=== PATIENT | female | born 1990 | race American Indian/Alaskan Native ===

== ENCOUNTER 2017-05-20 14:11 | Emergency (ER) | payer MEDICAID ==
[2017-05-20 14:31] VITALS: BP 121/49
[2017-05-20] MEDS ORDERED: methylPREDNISolone Sodium Succinate 125 MG/2 ML SDV IM ONE (14:43)
[2017-05-20] MEDS ORDERED: diphenhydrAMINE 50 MG Cap PO ONE (14:44)
--- NOTE | 2017-05-20 14:51 | EDM.PDOC ---
ED HPI GENERAL MEDICAL PROBLEM - General Chief Complaint: Skin Complaint Stated Complaint: SEVERE RASH ON BOTH LEGS Time Seen by Provider: 05/20/17 14:35 Source of Information: Reports: Patient History Limitations: Reports: No Limitations - History of Present Illness INITIAL COMMENTS - FREE TEXT/NARRATIVE: This 26 yo female patient reports to the ED with a rash on her legs. The patient reports her neighbor just mowed his lawn 3 days ago. After being over in the neighbors yard, the patient started to notice some redness of her legs. The patient reports she has tried calamine lotion, but her legs have continued to get worse. Over the past 3 days, the patient has been attempting to clean up her legs. The patient reports she attempted to get into the [facility], but was offered an appointment in 2 days. Onset: Gradual Onset Date: 05/17/17 Duration: Constant, Getting Worse Location: Reports: Lower Extremity, Left, Lower Extremity, Right Quality: Reports: Ache, Dull Severity: Moderate Improves with: Reports: None Worsens with: Reports: None Associated Symptoms: Reports: No Other Symptoms Bilateral Leg Pain Score (Numeric/FACES): 4 - Related Data Allergies Allergy/AdvReac Type Severity Reaction Status Date / Time No Known Allergies Allergy Verified 05/20/17 14:18 Home Meds: Home Meds . 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 ED EXAM, SKIN/RASH Exam: See Below Exam Limited By: No Limitations General Appearance: Alert, WD/WN, Moderate Distress Eye Exam: Bilateral Eye: EOMI, Normal Inspection, PERRL Ears: Normal External Exam, Normal Canal, Hearing Grossly Normal, Normal TMs Nose: Normal Inspection, Normal Mucosa, No Blood Throat/Mouth: Normal Inspection, Normal Lips, Normal Teeth, Normal Gums, Normal Oropharynx, Normal Voice, No Airway Compromise Head: Atraumatic, Normocephalic Neck: Normal Inspection, Supple, Non-Tender, Full Range of Motion Respiratory/Chest: No Respiratory Distress, Lungs Clear, Normal Breath Sounds, No Accessory Muscle Use, Chest Non-Tender Cardiovascular: Normal Peripheral Pulses, Regular Rate, Rhythm, No Edema, No Gallop, No JVD, No Murmur, No Rub GI/Abdominal: Normal Bowel Sounds, Soft, Non-Tender, No Organomegaly, No Distention, No Abnormal Bruit, No Mass (Female) Exam: Deferred Rectal (Female) Exam: Deferred Back Exam: Normal Inspection, Full Range of Motion, NT Extremities: Normal Range of Motion, Non-Tender, No Pedal Edema, Normal Capillary Refill Neurological: Alert, Oriented, CN II-XII Intact, Normal Cognition, Normal Gait, Normal Reflexes, No Motor/Sensory Deficits Psychiatric: Normal Affect, Normal Mood Skin: Warm, Increased Warmth, Rash Location, Skin: Lower Extremity, Right, Lower Extremity, Left Characteristics: Other Associated features: Warmth Lymphatic: No Adenopathy Course - Vital Signs Last Recorded V/S: Last Vital Signs Temp 36.6 C 05/20/17 14:28 Pulse 96 05/20/17 14:28 Resp 18 05/20/17 14:28 BP 121/49 L 05/20/17 14:28 Pulse Ox 100 05/20/17 14:28 - Orders/Labs/Meds Meds: Medications Discontinued Medications Generic Name Dose Route Start Last Admin Trade Name Jarek PRN Reason Stop Dose Admin Diphenhydramine HCl 50 mg 05/20/17 14:44 05/20/17 14:48 Benadryl PO 05/20/17 14:45 50 mg ONETIME ONE Administration Methylprednisolone Sodium Succinate 125 mg 05/20/17 14:43 05/20/17 14:48 Solu-Medrol IM 05/20/17 14:44 125 mg ONETIME ONE Administration Departure - Departure Time of Disposition: 14:49 Disposition: Home, Self-Care 01 Condition: Fair Clinical Impression: Poison karen dermatitis - Discharge Information Instructions: Poison Karen Dermatitis, [id number] Forms: ED Department Discharge Care Plan Goals: The patient was advised of the examination results during the visit. The patient was given an oral dose of Benadryl and an injection of SoluMedrol while in the ED. The patient was discharged with a script for Prednisone (20 mg) #10 to take 2 by mouth daily for 5 days. The patient was encouraged to also take an oral dose of Benadryl (25 mg) every 6 hours. The patient should wash her bedding and clothing with hot water prior to exposing her skin to the materials. If the patient has any additional symptoms or concerns, the patient should visit her primary care facility or return to the emergency department.
== END 2017-05-20 14:56 | disposition home or self-care (01) ==
LOC: DL.ED 14:11
DX: L23.7 Allergic contact dermatitis due to plants, except food (principal)
CPT/HCPCS: 96372; 99282; J2930; Q0163

== ENCOUNTER 2018-11-03 02:51 | Emergency (ER) | payer MEDICAID, OTHER ==
[2018-11-03] MEDS ORDERED: Sodium Chloride 0.9% 10 ML Syringe FLUSH PRN (03:05)
[2018-11-03] MEDS ORDERED: MVI, Adult with Vitamin K 10 ML, Folic Acid 1 MG, Thiamine 100 MG in Lactated Ringers 1... IV ONE ×4 (03:05)
[2018-11-03 03:40] LABS: ANION GAP 15.8; CHLORIDE,CL 107 mmol/L (101-111); SODIUM,NA 139 mmol/L (135-145)
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
[2018-11-03] MEDS ORDERED: LORazepam 2 MG/ML Syringe IVPUSH ONE (03:56)
[2018-11-03] MEDS ORDERED: Lactated Ringers 1,000 ML IV ONE (03:56)
[2018-11-03] MEDS ORDERED: metroNIDAZOLE 250 MG Tab PO ONE (07:08)
[2018-11-03 12:23] VITALS: BP 108/53
== END 2018-11-03 12:40 | disposition home or self-care (01) ==
LOC: DL.ED 02:51
DX: S82.842A Displaced bimalleolar fracture of left lower leg, initial encounter for closed fracture (principal); F10.929 Alcohol use, unspecified with intoxication, unspecified; S00.12XA Contusion of left eyelid and periocular area, initial encounter; S00.83XA Contusion of other part of head, initial encounter; S60.221A Contusion of right hand, initial encounter; D64.9 Anemia, unspecified; F17.210 Nicotine dependence, cigarettes, uncomplicated; Y04.8XXA Assault by other bodily force, initial encounter; Y07.01 Husband, perpetrator of maltreatment and neglect
CPT/HCPCS: 29515; 36415; 36430; 70450; 70486; 72125; 73610; 80053; 80305; 81001; 81025; 85025; 86850; 86900; 86901; 86920; 86922; 87086; 96361; 96374; 99285; A9270; G0480; J2060; J7120; P9016; 99284

== ENCOUNTER 2022-04-22 22:53 | Emergency (ER) | payer MEDICAID, OTHER ==
[2022-04-22 23:04] VITALS: BP 118/66; PULSE 88
== END 2022-04-23 00:22 | disposition home or self-care (01) ==
LOC: DL.ED 22:53
DX: S63.502A Unspecified sprain of left wrist, initial encounter (principal); X50.0XXA Overexertion from strenuous movement or load, initial encounter
CPT/HCPCS: 73110-LT; 99282; 99283

== ENCOUNTER 2022-11-25 18:43 | Emergency (ER) | payer MEDICAID ==
[2022-11-25] MEDS ORDERED: Sodium Chloride 0.9% 10 ML Syringe FLUSH PRN (18:55)
[2022-11-25] MEDS ORDERED: Sodium Chloride 0.9% 1,000 ML IV ONE (18:55)
[2022-11-25] MEDS ORDERED: Pantoprazole 40 MG Vial IVPUSH ONE (19:30)
[2022-11-25 19:31] LABS: PTT,PARTIAL THROMBOPLSTIN TIME 21.2 SEC (22.0-34.0)
[2022-11-25] MEDS ORDERED: Pantoprazole 40 MG in Sodium Chloride 0.9% 100 ML IV SCH (19:31)
[2022-11-25 19:43] LABS: ANION GAP 17.4 mEq/L (7-13); CHLORIDE,CL 103 mmol/L (98-107); SODIUM,NA 140 mmol/L (136-145)
[2022-11-25 19:49] LABS: ESTIMATED GFR 101 mL/min (>=60)
[2022-11-25 19:58] LABS: AMPHETAMINES,URINE NEGATIVE (NEGATIVE); BARBITURATES,URINE NEGATIVE (NEGATIVE); BENZODIAZEPINE,URINE NEGATIVE (NEGATIVE); MDMA (ECSTASY), URINE NEGATIVE (NEGATIVE); METHADONE,URINE NEGATIVE (NEGATIVE); METHAMPHETAMINES,URINE NEGATIVE (NEGATIVE); OPIATES,URINE NEGATIVE (NEGATIVE); OXYCODONE,URINE NEGATIVE (NEGATIVE); PHENCYCLIDINE,URINE NEGATIVE (NEGATIVE); TCA,URINE NEGATIVE (NEGATIVE)
[2022-11-26 03:54] VITALS: BP 106/58; PULSE 78
== END 2022-11-26 05:00 | disposition home or self-care (01) ==
LOC: DL.ED 18:43
DX: D64.9 Anemia, unspecified (principal)
CPT/HCPCS: 36415; 36430; 71045; 80053; 80305-QW; 80307; 81001; 81025; 82150; 82272; 83540; 83550; 83605; 83690; 83735; 84484; 85025; 85610; 85730; 86850; 86900; 86901; 86920; 86922; 93005; 93010; 96361; 96365; 96366; 96376; 99284; 99284-25; C9113; J3490; J7030; P9016

== ENCOUNTER 2023-07-30 09:00 | Emergency (ER) | payer MEDICAID ==
[2023-07-30] MEDS ORDERED: Sodium Chloride 0.9% 1,000 ML IV ONE (09:05)
[2023-07-30] MEDS ORDERED: LORazepam 2 MG/ML SDV IVPUSH ONE (09:05)
[2023-07-30] MEDS ORDERED: Famotidine 20 MG/2 ML SDV IVPUSH ONE (09:05)
[2023-07-30] MEDS ORDERED: Thiamine 100 MG in Sodium Chloride 0.9% 100 ML IV ONE (09:06)
[2023-07-30] MEDS ORDERED: Sodium Chloride 0.9% 10 ML Syringe FLUSH PRN (09:07)
[2023-07-30 09:12] VITALS: BP 127/91; PULSE 94
[2023-07-30 09:33] LABS: BASOPHILS PERCENT AUTO 0.8 % (0.0-1.0); EOSINOPHILS PERCENT AUTO 0.7 % (1.0-3.0); HEMATOCRIT 31.9 % (37.0-47.0); HEMOGLOBIN 9.8 g/dL (12.0-16.0); LYMPHOCYTES PERCENT AUTO 18.9 % (20.5-50.1); MEAN CORPUSCULAR HEMOGLOBIN 25.3 pg (27.0-34.0); MEAN CORPUSCULAR HGB CONC 30.7 g/dL (33.0-35.0); MEAN CORPUSCULAR VOLUME 82.4 fL (80-100); NEUTROPHILS PERCENT AUTO 73.6 % (42.2-75.2); PLATELET COUNT,PLT 476 10^3/uL (150-450); RED BLOOD CELL COUNT 3.87 10^6/uL (4.2-5.4); WHITE BLOOD CELL COUNT,WBC 7.2 10^3/uL (5.0-10.0)
[2023-07-30 09:45] LABS: A/G RATIO 0.8; ALBUMIN 3.7 g/dL (3.4-5.0); ANION GAP 13.8 mEq/L (7-13); BILIRUBIN TOTAL 0.4 mg/dL (0.2-1.0); BUN/CREATININE RATIO 3.7 (No establ ref range); CALCIUM 8.4 mg/dL (8.5-10.1); CREATININE 0.81 mg/dL (0.55-1.02); EST CRCL DRUG DOSING (CG) 95.17 mL/min; MAGNESIUM 1.6 mg/dL (1.8-2.4); POTASSIUM,K 3.8 mmol/L (3.5-5.1); PROTEIN TOTAL,TP 8.3 g/dL (6.4-8.2)
[2023-07-30 09:53] LABS: APPEARANCE,URINE CLEAR (CLEAR); BILIRUBIN,URINE NEGATIVE (NEGATIVE); COLOR,URINE DARK YELLOW (YELLOW); GLUCOSE,URINE NEGATIVE (NEGATIVE); KETONES,URINE NEGATIVE (NEGATIVE); LEUKOCYTE ESTERASE,URINE TRACE (NEGATIVE); NITRITE,URINE NEGATIVE (NEGATIVE); OCCULT BLOOD,URINE TRACE-INTACT (NEGATIVE); PH,URINE 7.5 (5.0-9.0); PROTEIN,URINE 100 (NEGATIVE)
[2023-07-30 09:54] LABS: AMPHETAMINES,URINE NEGATIVE (NEGATIVE); BARBITURATES,URINE NEGATIVE (NEGATIVE); BENZODIAZEPINE,URINE NEGATIVE (NEGATIVE); MDMA (ECSTASY), URINE NEGATIVE (NEGATIVE); METHADONE,URINE NEGATIVE (NEGATIVE); METHAMPHETAMINES,URINE NEGATIVE (NEGATIVE); OPIATES,URINE NEGATIVE (NEGATIVE); OXYCODONE,URINE NEGATIVE (NEGATIVE); PHENCYCLIDINE,URINE NEGATIVE (NEGATIVE); TCA,URINE NEGATIVE (NEGATIVE)
[2023-07-30 10:00] LABS: MUCUS,URINE MANY /LPF (NOT SEEN)
[2023-07-30 10:01] LABS: BACTERIA,URINE MANY /HPF (0-FEW/HPF); EPITHELIAL CELLS,URINE MANY /HPF (NOT SEEN)
[2023-07-30 10:02] LABS: RBC,URINE 0-5 /HPF (0-5)
[2023-07-30 10:17] LABS: PROTHROMBIN TIME 10.6 SEC (9.0-12.0); PTT,PARTIAL THROMBOPLSTIN TIME 24.3 SEC (22.0-34.0)
[2023-07-30] MEDS ORDERED: Magnesium Sulfate/Water 2 GM in Premix Bag 1 BAG IV ONE (10:23)
== END 2023-07-30 11:56 | disposition home or self-care (01) ==
LOC: DL.ED 09:00
DX: K29.20 Alcoholic gastritis without bleeding (principal); F41.9 Anxiety disorder, unspecified; N76.0 Acute vaginitis; F10.10 Alcohol abuse, uncomplicated; E83.42 Hypomagnesemia
CPT/HCPCS: 36415; 80053; 80305-QW; 80307; 81001; 81025; 83690; 83735; 85025; 85610; 85730; 87086; 87491; 87563; 87591; 96361; 96365; 96366; 96375; 99284; 99284-25; J2060; J3411; J3475; J3490; J7030

== ENCOUNTER 2025-06-05 00:24 | Emergency (ER) | payer MEDICAID ==
[2025-06-05] MEDS: Iopamidol 612 MG/ML 100 ML Bottle IVPUSH ONE (00:49)
[2025-06-05 01:12] LABS: BASOPHILS PERCENT AUTO 2.0 % (0.0-1.0); EOSINOPHILS PERCENT AUTO 0.9 % (1.0-3.0); LYMPHOCYTES PERCENT AUTO 35.8 % (20.5-50.1); MONOCYTES PERCENT AUTO 6.6 % (2-8); NEUTROPHILS PERCENT AUTO 54.7 % (42.2-75.2); PLATELET COUNT,PLT 327 10^3/uL (150-450); RED BLOOD CELL COUNT 3.68 10^6/uL (4.2-5.4); WHITE BLOOD CELL COUNT,WBC 3.5 10^3/uL (5.0-10.0)
[2025-06-05 01:31] LABS: HCG QUALITATIVE,SERUM NEGATIVE (NEGATIVE)
[2025-06-05 01:32] LABS: A/G RATIO 0.8; ALANINE AMINOTRANSFERASE,ALT 16 U/L (14-59); ASPARTATE AMNIOTRANSFERASE,AST 15 U/L (15-37); BILIRUBIN TOTAL 0.3 mg/dL (0.2-1.0); BLOOD UREA NITROGEN,BUN 6 mg/dL (7-18); CARBON DIOXIDE,CO2 28 mmol/L (21-32); CHLORIDE,CL 109 mmol/L (98-107); CREATININE 0.68 mg/dL (0.55-1.02); EST CRCL DRUG DOSING (CG) 98.76 mL/min; GLUCOSE RANDOM 105 mg/dL (70-99); POTASSIUM,K 3.8 mmol/L (3.5-5.1); PROTEIN TOTAL,TP 8.4 g/dL (6.4-8.2); SODIUM,NA 146 mmol/L (136-145)
[2025-06-05 01:33] LABS: ESTIMATED GFR 116 mL/min (>=60)
[2025-06-05 03:16] VITALS: BP 108/79; PULSE 83
== END 2025-06-05 03:05 | disposition home or self-care (01) ==
LOC: DL.ED 00:24
DX: S09.11XA Strain of muscle and tendon of head, initial encounter (principal); D50.9 Iron deficiency anemia, unspecified; Z86.16 Personal history of COVID-19; X58.XXXA Exposure to other specified factors, initial encounter; Y93.89 Activity, other specified
CPT/HCPCS: 36415; 70487; 80053; 82150; 84703; 85025; 96360; 99284-25; J7030; Q9967